=== PATIENT | male | born 1970 | race African-American/Black ===

== ENCOUNTER 2016-06-30 11:28 | Inpatient (IN) | payer OTHER ==
[2016-06-30] VITALS (17 sets, daily range): BP systolic 110–181; BP diastolic 69–115
[~2016-06-30] VITALS: Ht 177.8 cm; Wt 98.9 kg
[~2016-06-30 11:28] MED LIST: AMLO10TA2 PO; CRESTOR40 MG PO; HYDR25TA9 PO; POTASSIUM CHLO10 MEQ PO; SPIR25TA PO
[2016-06-30] MEDS ORDERED: IV NORMAL SALINE 1000ML BAG 1,000 ML IV SCH (12:26)
[2016-06-30] MEDS ORDERED: LABETALOL 20 MG/4 ML DISP.SYRIN. IVP ONE (12:30)
--- NOTE | 2016-06-30 12:38 | EKG ---
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
--- NOTE | 2016-06-30 12:43 | RAD ---
Indication shortness of breath. Dizziness. A single view of the chest was obtained. Comparison is made to a study February 10, 2013. The heart and pulmonary vessels are normal. The lungs are clear of acute infiltrates. Visualized bony structures appear grossly intact. IMPRESSION: No acute or focal process seen in the chest
[2016-06-30 12:51] LABS: CALCIUM 9.3 mg/dL (8.5-10.1); CREATININE 1.2 mg/dL (0.7-1.3); GFR 79.6; POTASSIUM 3.3 mmol/L (3.5-5.1)
--- NOTE | 2016-06-30 12:53 | RAD ---
Indication headache. Hypertension. Noncontrast images of the head were obtained and are compared to an exam 02/15/2007. The calvarium appears unremarkable. There is partial opacification of ethmoid air cells. There is some minimal debris or mucosal thickening in the left frontal sinus. Clinical correlation as to the possibility of sinusitis advised. The ventricles and sulci are within normal limits. There is no subdural or epidural hematoma. No mass or midline shift is seen. No hemorrhage is apparent. Acute intracranial finding is not seen. IMPRESSION: No acute or significant finding intracranially seen on noncontrast CT images of the head. Possible sinus disease. Clinical correlation advised PQRS Compliance Statement: One or more of the following individualized dose reduction techniques were utilized for this examination: 1. Automated exposure control 2. Adjustment of the mA and/or kV according to patient size 3. Use of iterative reconstruction technique
[2016-06-30 12:56] LABS: ALBUMIN/GLOBULIN RATIO 0.9 (1.0-1.7); MAGNESIUM 2.2 mg/dL (1.8-2.4); TOTAL BILIRUBIN 0.8 mg/dL (0.2-1.0); TOTAL PROTEIN 8.4 g/dL (6.4-8.2)
[2016-06-30 13:07] LABS: BASO % 1 % (0-3); EOS % 3 % (0-3); HEMATOCRIT 44.6 % (39.0-53.0); HEMOGLOBIN 14.6 g/dL (13.0-17.5); LYMPH # 2.5 x10^3/uL (1.0-4.8); LYMPH % 45 % (24-48); MEAN CORPUSCULAR HEMOGLOBIN 32 pg (25-35); MEAN CORPUSCULAR HGB CONC 33 g/dL (31-37); MEAN CORPUSCULAR VOLUME 96 fL (79-100); MONO % 8 % (0-9); NEUT % 44 % (31-73); PLATELET COUNT 227 x10^3/uL (140-400); RED BLOOD COUNT 4.64 x10^6/uL (4.30-5.70); RED CELL DISTRIBUTION WIDTH 12.7 % (11.5-14.5); WHITE BLOOD COUNT 5.7 x10^3/uL (4.0-11.0)
--- NOTE | 2016-06-30 13:09 | PHYS DOC ---
Past Medical History Past Medical History: High Cholesterol, Hypertension Additional Past Medical Histor: GOUT Past Surgical History: No Surgical History Additional Information: 1/2 PACK/DAY Alcohol Use: Occasionally Additional Information: 3 BEERS/DAY Drug Use: None Adult General Chief Complaint Chief Complaint: DIZZY/LIGHT HEADED HPI HPI Patient is a 45 year old male who presents with complaint of dizziness, headache, and high blood pressure. Patient states his symptoms have been present for the past 2-3 days. Patient states that he has history of hypertension but does not know the name of his medication and admits that he has not been taking it daily. The patient states that he has been having dizziness upon standing and persistent headaches. Patient denies any chest pain or shortness of breath associated with his symptoms. Patient does admit to generalized weakness and decreased appetite during this time. Denies any fevers. Patient has not taken any medications to help with his symptoms. Patient was noted to be significantly hypertensive upon presentation to the emergency department. Patient follows a Dr. jackson robertson for primary care. Review of Systems Review of Systems Constitutional: Denies fever or chills [] Eyes: Denies change in visual acuity, redness, or eye pain [] HENT: Denies nasal congestion or sore throat [] Respiratory: Denies cough or shortness of breath [] Cardiovascular: Denies chest pain or edema [] GI: Loss of appetite, denies abdominal pain, nausea, vomiting, bloody stools or diarrhea [] : Denies dysuria or hematuria [] Musculoskeletal: Denies back pain or joint pain [] Integument: Denies rash or skin lesions [] Neurologic: Headache, dizziness, denies [] Current Medications Current Medications Current Medications Medications (Trade) Dose Ordered Sig/Mik Start Time Stop Time Status Last Admin Dose Admin Labetalol HCl (Normodyne) 20 mg 1X ONCE 06/30/16 12:30 06/30/16 12:31 DC 06/30/16 12:52 20 MG Nicardipine HCl 50 mg/Sodium Chloride 270 ml @ 0 mls/hr CONT PRN 06/30/16 13:45 Sodium Chloride 1,000 ml @ 100 mls/hr Q10H 06/30/16 12:26 06/30/16 22:25 06/30/16 12:52 100 MLS/HR Allergies Allergies Allergies Coded Allergies Type Severity Reaction Last Updated Verified No Known Drug Allergies 10/16/13 No Physical Exam Physical Exam Constitutional: Alert, hypertensive, afebrile, no acute distress. [] HENT: Normocephalic, atraumatic, bilateral external ears normal, oropharynx moist, no oral exudates, nose normal. [] Eyes: PERRLA, EOMI, conjunctiva normal, no discharge. [] Neck: Normal range of motion, no tenderness, supple, no stridor. [] Cardiovascular:Heart rate regular rhythm, no murmur [] Lungs & Thorax: Bilateral breath sounds clear to auscultation [] Abdomen: Bowel sounds normal, soft, no tenderness, no masses, no pulsatile masses. [] Skin: Warm, dry, no erythema, no rash. [] Back: No tenderness, no CVA tenderness. [] Extremities: No tenderness, no cyanosis, no clubbing, ROM intact, no edema. [] Neurologic: Alert and oriented X 3, normal motor function, normal sensory function, no focal deficits noted. [] Current Patient Data Vital Signs Vital Signs Date Time Temp Pulse Resp B/P (MAP) Pulse Ox O2 Delivery O2 Flow Rate FiO2 06/30/16 12:52 76 177/110 06/30/16 11:42 98.5 18 95 Room Air 98.5 Lab Values Laboratory Tests Test 06/30/16 11:40 06/30/16 13:19 White Blood Count 5.7 x10^3/uL (4.0-11.0) Red Blood Count 4.64 x10^6/uL (4.30-5.70) Hemoglobin 14.6 g/dL (13.0-17.5) Hematocrit 44.6 % (39.0-53.0) Mean Corpuscular Volume 96 fL (79-100) Mean Corpuscular Hemoglobin 32 pg (25-35) Mean Corpuscular Hemoglobin Concent 33 g/dL (31-37) Red Cell Distribution Width 12.7 % (11.5-14.5) Platelet Count 227 x10^3/uL (140-400) Neutrophils (%) (Auto) 44 % (31-73) Lymphocytes (%) (Auto) 45 % (24-48) Monocytes (%) (Auto) 8 % (0-9) Eosinophils (%) (Auto) 3 % (0-3) Basophils (%) (Auto) 1 % (0-3) Neutrophils # (Auto) 2.5 x10^3uL (1.8-7.7) Lymphocytes # (Auto) 2.5 x10^3/uL (1.0-4.8) Monocytes # (Auto) 0.4 x10^3/uL (0.0-1.1) Eosinophils # (Auto) 0.2 x10^3/uL (0.0-0.7) Basophils # (Auto) 0.0 x10^3/uL (0.0-0.2) Prothrombin Time 13.4 SEC (11.7-14.0) Prothrombin Time INR 1.1 (0.8-1.1) PTT 28 SEC (24-38) Sodium Level 139 mmol/L (136-145) Potassium Level 3.3 mmol/L (3.5-5.1) L Chloride Level 99 mmol/L (98-107) Carbon Dioxide Level 30 mmol/L (21-32) Anion Gap 10 (6-14) Blood Urea Nitrogen 15 mg/dL (8-26) Creatinine 1.2 mg/dL (0.7-1.3) Estimated GFR (Cockcroft-Gault) 79.6 BUN/Creatinine Ratio 13 (6-20) Glucose Level 79 mg/dL (70-99) Calcium Level 9.3 mg/dL (8.5-10.1) Magnesium Level 2.2 mg/dL (1.8-2.4) Total Bilirubin 0.8 mg/dL (0.2-1.0) Aspartate Amino Transferase (AST) 21 U/L (15-37) Alanine Aminotransferase (ALT) 25 U/L (16-63) Alkaline Phosphatase 58 U/L (46-116) Troponin I Quantitative < 0.017 ng/mL (0.000-0.055) Total Protein 8.4 g/dL (6.4-8.2) H Albumin 4.0 g/dL (3.4-5.0) Albumin/Globulin Ratio 0.9 (1.0-1.7) L Lipase 85 U/L (73-393) Urine Color Yellow Urine Clarity Clear Urine pH 5.5 Urine Specific [place] 1.025 Urine Protein Negative mg/dL (NEG-TRACE) Urine Glucose (UA) Negative mg/dL (NEG) Urine Ketones (Stick) 15 mg/dL (NEG) Urine Blood Negative (NEG) Urine Nitrite Negative (NEG) Urine Bilirubin Small (NEG) Urine Urobilinogen Dipstick 1.0 mg/dL (0.2 mg/dL) Urine Leukocyte Esterase Negative (NEG) Urine RBC Occ /HPF (0-2) Urine WBC 1-4 /HPF (0-4) Urine Squamous Epithelial Cells Occ /LPF Urine Bacteria 0 /HPF (0-FEW) Urine Hyaline Casts Occasional /HPF Urine Mucus Mod /LPF Laboratory Tests 06/30/16 11:40 Laboratory Tests 06/30/16 11:40 EKG EKG Interpreted by me: Heart rate 80, sinus rhythm, normal intervals, T-wave inversions in the inferior leads and in V3 through V6, no acute ST elevations or depressions [] Radiology/Procedures Radiology/Procedures [place] [id number] IMAGING REPORT Signed PATIENT: JAMES BERNAL ACCOUNT: [id number] : 1970 LOCATION: ER AGE: 45 SEX: M EXAM STATUS: REG ER ORD. PHYSICIAN: ARTUR LOPEZ MD REASON: shortness of breath PROCEDURE: PORTABLE CHEST 1V Indication shortness of breath. Dizziness. A single view of the chest was obtained. Comparison is made to a study February 10, 2013. The heart and pulmonary vessels are normal. The lungs are clear of acute infiltrates. Visualized bony structures appear grossly intact. IMPRESSION: No acute or focal process seen in the chest DICTATED and SIGNED BY: IRENE MEAD MD DATE: 06/30/16 1240 CC: ARTUR LOPEZ MD; LORIE GOLDEN MD ~ [place] [address] [place] [address] IMAGING REPORT Signed PATIENT: JAMES BERNAL ACCOUNT: [id number] : 1970 LOCATION: ER AGE: 45 SEX: M EXAM STATUS: REG ER ORD. PHYSICIAN: ARTUR LOPEZ MD REASON: headache, critical hypertension PROCEDURE: CT HEAD WO CONTRAST Indication headache. Hypertension. Noncontrast images of the head were obtained and are compared to an exam 02/15/2007. The calvarium appears unremarkable. There is partial opacification of ethmoid air cells. There is some minimal debris or mucosal thickening in the left frontal sinus. Clinical correlation as to the possibility of sinusitis advised. The ventricles and sulci are within normal limits. There is no subdural or epidural hematoma. No mass or midline shift is seen. No hemorrhage is apparent. Acute intracranial finding is not seen. IMPRESSION: No acute or significant finding intracranially seen on noncontrast CT images of the head. Possible sinus disease. Clinical correlation advised PQRS Compliance Statement: One or more of the following individualized dose reduction techniques were utilized for this examination: 1. Automated exposure control 2. Adjustment of the mA and/or kV according to patient size 3. Use of iterative reconstruction technique DICTATED and SIGNED BY: IRENE MEAD MD DATE: 06/30/16 3535 CC: ARTUR LOPEZ MD; LORIE GOLDEN MD ~ [] Course & Med Decision Making Course & Med Decision Making Pertinent Labs and Imaging studies reviewed. (See chart for details) Patient was treated with IV labetalol in the emergency department. Patient did not achieve control of blood pressure and continued to have symptoms of headache and dizziness. The patient was thus started on nicardipine drip for control of blood pressure. On reevaluation, the patient's blood pressures steadily improving. The patient will require admission to the hospital for continued treatment of malignant hypertension. I spoke with Dr. Golden who accepted care patient in hospital. A consult was placed to Dr. Walters of cardiology to follow with patient in hospital. Critical care time excluding procedures: 40 minutes Dragon Disclaimer Dragon Disclaimer This electronic medical record was generated, in whole or in part, using a voice recognition dictation system. Departure Departure Impression: Primary Impression: Malignant hypertension Disposition: ADMITTED INPATIENT Admitting Physician: Lorie Golden Condition: GUARDED Referrals: LORIE GOLDEN MD (PCP) ARTUR LOPEZ MD June 30, 2016 13:09
[2016-06-30 13:21] LABS: INR 1.1 (0.8-1.1); PROTHROMBIN TIME PATIENT 13.4 SEC (11.7-14.0)
[2016-06-30 13:35] LABS: BILIRUBIN,URINE SMALL (NEG); GLUCOSE,URINE NEGATIVE (NEG); NITRITE,URINE NEGATIVE (NEG); PH,URINE 5.5; PROTEIN,URINE NEGATIVE (NEG-TRACE)
[2016-06-30 13:59] LABS: BACTERIA,URINE 0 /HPF (0-FEW); RBC,URINE OCC /HPF (0-2); SQUAMOUS EPITHELIAL CELL,UR OCC /LPF
--- NOTE | 2016-06-30 14:56 | ACF ---
Admission Forms Criteria HYPERTENSION Clinical Indications for Admission to Inpatient Care ( Place "X" for any and all applicable criteria): Admission is indicated for ANY ONE of the following(1)(2)(3)(4): [ ]I. Hypertensive emergency, with evidence of acute and progressing target organ disease as indicated by ANY ONE of the following: [ ]a) Hypertensive encephalopathy (eg, confusion, altered mental status) [ ]b) Cerebral infarction [ ]c) Intracranial hemorrhage [ ]d) Myocardial ischemia or infarction [ ]e) Pulmonary edema [ ]f) Aortic dissection [ ]g) Seizure [ ]h) Acute renal insufficiency [ ]i) Papilledema [ ]j) Microangiopathic hemolytic anemia [ ]II. Adrenergic crisis (eg, severe hypertension due to pheochromocytoma crisis, cocaine or amphetamine intoxication, or clonidine withdrawal) [X]III. Severe hypertension (SBP greater than 180 mmHg or DBP greater than 110 mmHg or greater than the 95th percentile for age, gender, and height in pediatric patients) that cannot be controlled (eg, to SBP less than 160 mmHg and DBP less than 100 mmHg in adults) by treatment with oral medication in emergency department or observation care Extended stay beyond goal length of stay may be needed for(11)(12)(13): [ ]a) Persistent hypertensive encephalopathy [ ]b) Continuation of pulmonary edema [ ]c) Recurring or persistent severe hypertension [ ]d) Target organ damage (eg, angina, stroke, aortic dissection) [ ]e) Associated renal insufficiency The original [facility] content created by [employer] has been revised. The portions of the content which have been revised are identified through the use of italic text or in bold, and [facility] has neither reviewed nor approved the modified material. All other unmodified content is copyright [facility] [employer]. Please see references footnoted in the original [facility] edition 2016 Admission Criteria Met?: Yes DEE NASCIMENTO June 30, 2016 14:56
[2016-06-30] MEDS ORDERED: POTASSIUM CHLORIDE 20 MEQ TABLET.ER. PO ONE (15:15)
[2016-06-30] MEDS: amLODIPine BESYLATE 10 MG TABLET PO SCH (15:42)
[2016-06-30] MEDS: hydroCHLOROthiazide 25 MG TABLET PO SCH (15:42)
[2016-06-30] MEDS: SPIRONOLACTONE 25 MG TABLET PO SCH (15:43)
[2016-06-30] MEDS: ATORVASTATIN CALCIUM 40 MG TABLET. PO SCH (21:08)
[2016-07-01] VITALS (13 sets, daily range): BP systolic 82–161; BP diastolic 54–112
[2016-07-01 04:30] LABS: CREATININE 1.2 mg/dL (0.7-1.3); GFR 79.6
[2016-07-01] MEDS: SPIRONOLACTONE 25 MG TABLET PO SCH (08:24)
[2016-07-01] MEDS: POTASSIUM CHLORIDE 10 MEQ TABLET.ER. PO SCH (08:25)
[2016-07-01] MEDS: amLODIPine BESYLATE 10 MG TABLET PO SCH (08:25)
[2016-07-01] MEDS: hydroCHLOROthiazide 25 MG TABLET PO SCH (08:25)
[2016-07-01] MEDS ORDERED: POTASSIUM CHLORIDE 20 MEQ TABLET.ER. PO ONE ×2 (08:30→10:30)
--- NOTE | 2016-07-01 09:49 | PDOC ---
Provider Note Provider Note Pt seen in icu, H&P to be dictated. NOY GOLDEN MD July 01, 2016 09:49
--- NOTE | 2016-07-01 17:44 | CARD ---
APPROVED REPORT EXAM: Two-dimensional and M-mode echocardiogram with Doppler and color Doppler. Other Information Quality : Good INDICATION Hypertension/HCVD Heart Disease 2D DIMENSIONS RVDd2.4 (2.9-3.5cm)Left Atrium(2D)4.2 (1.6-4.0cm) IVSd1.0 (0.7-1.1cm)Aortic Root(2D)3.2 (2.0-3.7cm) LVDd5.3 (3.9-5.9cm)LVOT Diameter2.2 (1.8-2.4cm) PWd1.5 (0.7-1.1cm)LVDs2.8 (2.5-4.0cm) FS (%) 30.0 %SV105.9 ml LVEF(%)60.0 (>50%) Aortic Valve AoV Peak Gray.125.0cm/sAoV VTI17.4cm AO Peak GR.6.3mmHgLVOT VTI 16.79cm AO Mean GR.3mmHgAVA (VTI)3.70cm2 Mitral Valve MV E Dlbsctwt86.6cm/sMV DECEL IAKP199pj MV A Gsjxkktz46.0cm/sE/A Ratio0.6 TDI Lateral E' P. V7.21cm/sMedial E' P. V4.76cm/s E/Lateral E'6.9E/Medial E'10.4 Tricuspid Valve TR P. Unjlemsm982rb/sRAP ILCGVQJA1ebCm TR Peak Gr.63vqMhADVN61jvNq Pulmonary Vein S1 Iqsjprym25.2cm/sS2 Btmelknr01.46cm/s D2 Sbqqokqb52.5cm/s LEFT VENTRICLE The left ventricle is normal size. There is mild to moderate concentric left ventricular hypertrophy. The left ventricular systolic function is normal and the ejection fraction is within normal range. T he Ejection Fraction is 60%. There is normal LV segmental wall motion. Transmitral Doppler flow patte rn is Grade I-abnormal relaxation pattern. RIGHT VENTRICLE The right ventricle is normal size. The right ventricular systolic function is normal. ATRIA The left atrium is mildly dilated. The right atrium size is normal. The interatrial septum is intact with no evidence for an atrial septal defect or patent foramen ovale as noted on 2-D or Doppler imagi ng. AORTIC VALVE The aortic valve is normal in structure and function. Doppler and Color Flow revealed no significant aortic regurgitation. There is no significant aortic valvular stenosis. MITRAL VALVE The mitral valve is normal in structure and function. There is no evidence of mitral valve prolapse. There is no mitral valve stenosis. Doppler and Color-flow revealed trace mitral regurgitation. TRICUSPID VALVE The tricuspid valve is normal in structure and function. Doppler and Color Flow revealed trace tricus pid regurgitation. There is no pulmonary hypertension. The PA pressure was estimated at 28 mmHg. Ther e is no tricuspid valve stenosis. PULMONIC VALVE The pulmonary valve is normal in structure and function. Doppler and Color Flow revealed no pulmonic valvular regurgitation. There is no pulmonic valvular stenosis. GREAT VESSELS The aortic root is normal in size. The ascending aorta is mildly dilated at 3.6 cm. The IVC is normal in size and collapses >50% with inspiration. PERICARDIAL EFFUSION There is no evidence of significant pericardial effusion. Critical Notification Critical Value: No <Conclusion> The left ventricular systolic function is normal and the ejection fraction is within normal range. The Ejection Fraction is 60%. Transmitral Doppler flow pattern is Grade I-abnormal relaxation pattern. There is mild to moderate concentric left ventricular hypertrophy. The left atrium is mildly dilated. The right atrium size is normal. The aortic valve is normal in structure and function. Doppler and Color-flow revealed trace mitral regurgitation. Doppler and Color Flow revealed trace tricuspid regurgitation. There is no pulmonary hypertension. The PA pressure was estimated at 28 mmHg. The pulmonary valve is normal in structure and function. There is no evidence of significant pericardial effusion.
[2016-07-01] MEDS: ATORVASTATIN CALCIUM 40 MG TABLET. PO SCH (22:23)
[2016-07-02 03:39] VITALS: BP 144/95
[2016-07-02 04:48] LABS: CALCIUM 9.4 mg/dL (8.5-10.1); CREATININE 1.3 mg/dL (0.7-1.3); GFR 72.6; POTASSIUM 3.7 mmol/L (3.5-5.1)
--- NOTE | 2016-07-02 06:18 | HP ---
ADMIT DATE: 06/30/2016 LOCATION: ICU, room 110. REASON FOR ADMISSION TO THE HOSPITAL: Malignant hypertension, noncompliant with hypertensive medications. HISTORY OF PRESENT ILLNESS: The patient is a 45-year-old male with a history of hypertension, hyperlipidemia, gout, has been supposed to take medications, but he has been noncompliant. His blood pressure was high, feeling headache, lightheaded, came to the Emergency Room. His blood pressure has been high, 220/110, was given Cardene drip, was admitted to the ICU. PAST MEDICAL HISTORY: Hypertension, hyperlipidemia, gout, noncompliance. PAST SURGICAL HISTORY: None. ALLERGIES: None. PERSONAL HISTORY: Smokes half a pack daily. Alcohol, 3 [address] Den[address] drugs. FAMILY HISTORY: Positive for hypertension. REVIEW OF SYMPTOMS: CARDIAC: No chest pain. LUNGS: No shortness of breath. GASTROINTESTINAL: No nausea or vomiting, just lightheaded, dizziness. MEDICATIONS AT HOME: Amlodipine 10 mg daily, hydrochlorothiazide 25 mg daily, potassium 10 mEq daily, Crestor 40 mg daily, spironolactone 25 mg daily. PHYSICAL EXAMINATION: GENERAL: The patient is comfortable. 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 At the time of admission, shows temperature 98, pulse 80, respirations 18, blood pressure 220/131, 95 on room air. HEENT: Head is atraumatic. Pupils equal. Oral cavity: No congestion. NECK: Supple. Thyroid not enlarged. JVD not elevated. CHEST: Symmetrical. CARDIOVASCULAR: S1, S2. LUNGS: Clear to auscultation. ABDOMEN: Soft, bowel sounds present, no mass palpable. EXTERNAL GENITALIA: No Hernandez. RECTAL: Deferred. EXTREMITIES: No calf tenderness, no edema. Pulses 1+. NEUROLOGIC: Cranial nerves intact. Power 5/5 in the extremities. LABORATORY DATA: Shows a white count of 5, hemoglobin 14, platelets 227. Electrolytes show sodium 149, potassium 3.3, chloride 99, bicarb 30, BUN 15, creatinine 1.2. LFTs were normal. Troponin was negative. INR is 1.1. Urine was negative. Had a chest x-ray, was no acute process. CT head was negative, possible sinus disease. EKG done, report is pending. FINAL IMPRESSION: 1. Malignant hypertension. 2. Noncompliance. 3. History of smoking and alcoholism. PLAN: At this time, admit to hospital . The patient was placed on cardene drip, was titrated down, weaned off this morning. We will get an echocardiogram for left ventricular function, replace potassium and can move out of the ICU today. Probably discharge home in the next 1-2 days. NOY GOLDEN MD DR: KINA/bony JOB#: [id number] / [id number] SANTINO
[2016-07-02 07:00] VITALS: BP 157/114
[2016-07-02] MEDS: POTASSIUM CHLORIDE 10 MEQ TABLET.ER. PO SCH (08:00)
--- NOTE | 2016-07-02 10:19 | PDOC ---
PROGRESS NOTES Subjective Subjective bp not controlled ,going up again Objective Objective Vital Signs Date Time Temp Pulse Resp B/P (MAP) Pulse Ox O2 Delivery O2 Flow Rate FiO2 07/02/16 07:00 98.0 76 157/114 (128) 98 Room Air 98.0 07/02/16 03:39 18 Intake and Output 07/02/16 07:00 Intake Total 1420 ml Balance 1420 ml Intake Oral 1420 ml # Voids 7 # Bowel Movements 1 Physical Exam Abdomen: Normal bowel sounds, Soft Heart: Regular rate, Normal S1 Extremities: No clubbing General: Alert HEENT: Atraumatic Lungs: Clear to auscultation MUSCULOSKELETAL: No deformity Neck: Supple Neuro: Normal speech Psych/Mental Status: Mental status NL Skin: No breakdown Assessment Assessment FINAL IMPRESSION: 1. Malignant hypertension. 2. Noncompliance. 3. History of smoking and alcoholism. PLAN: ECHO good LVF. potassium good 4.0 today ,replaced. renal consult sono kidneys and duplex scan kidneys. home today or tomorrow. At this time, admit to hospital ICU. The patient was placed on Nipride drip, was titrated down, weaned off this morning. We will get an echocardiogram for left ventricular function, replace potassium and can move out of the ICU today. Probably discharge home in the next 1-2 days. Problems: Comment Review of Relevant I have reviewed the following items mireille (where applicable) has been applied. Labs Laboratory Tests Test 07/02/16 03:09 Sodium Level 142 mmol/L (136-145) Potassium Level 3.7 mmol/L (3.5-5.1) Chloride Level 102 mmol/L (98-107) Carbon Dioxide Level 33 mmol/L (21-32) Anion Gap 7 (6-14) Blood Urea Nitrogen 16 mg/dL (8-26) Creatinine 1.3 mg/dL (0.7-1.3) Estimated GFR (Cockcroft-Gault) 72.6 Glucose Level 98 mg/dL (70-99) Calcium Level 9.4 mg/dL (8.5-10.1) Medications Current Medications Potassium Chloride (Klor-Con) 40 meq 1X ONCE PO Last administered on t 11:16; Start 07/01/16 at 10:30; Stop 07/01/16 at 10:31; Status DC Vitals/I & O Vital Sign - Last 24 Hours 07/01/16 07/01/16 07/01/16 07/01/16 14:47 19:00 20:00 23:00 Temp 98.1 97.9 97.7 98.1 97.9 97.7 Pulse 73 93 75 Resp 20 18 18 B/P (MAP) 151/102 (118) 146/112 (123) 141/93 (109) Pulse Ox 98 100 96 O2 Delivery Room Air Room Air Room Air Room Air 07/02/16 07/02/16 03:39 07:00 Temp 97.5 98.0 97.5 98.0 Pulse 73 76 Resp 18 B/P (MAP) 144/95 (111) 157/114 (128) Pulse Ox 97 98 O2 Delivery Room Air Room Air Intake and Output 07/01/16 07/01/16 07/02/16 15:00 23:00 07:00 Intake Total 240 ml 780 ml 400 ml Balance 240 ml 780 ml 400 ml NOY GOLDEN MD July 02, 2016 10:19
[2016-07-02 11:00] VITALS: BP 162/113
--- NOTE | 2016-07-02 13:50 | RAD ---
Renal ultrasound with deep Doppler, 07/02/2016: History: Uncontrolled hypertension The right kidney measures 11.9 cm in length as does the left kidney. There is no evidence of hydronephrosis. There is a 3.5 cm mass in the right mid to lower kidney. It appears to be predominantly cystic with septations. There is a small echogenic component which could be solid. No left renal mass is seen. The renal parenchymal echogenicity is otherwise within normal limits. Limited views of urinary bladder show no abnormality. Duplex evaluation of the main renal arteries was attempted including grayscale, color-flow and spectral Doppler analysis. No high velocity is seen in the right main renal artery to suggest significant stenosis. The origin of left renal artery from the aorta was obscured by overlying bowel. The mid and distal aspects of the main left renal artery demonstrate no high velocities. The renal artery to aortic velocity ratios are within normal limits bilaterally. No parvus/tardus phenomena is seen on either side. IMPRESSION: 1. No duplex evidence of significant renal artery stenosis, although the origin of the left renal artery was not clearly visualized. 2. Complicated, predominantly cystic mass in the right kidney. Multiphase CT scanning is suggested for optimal characterization.
[2016-07-02 15:00] VITALS: BP 169/114
[2016-07-02 19:00] VITALS: BP 150/109
[2016-07-02] MEDS ORDERED: hydrALAZINE 20 MG/ML VIAL. IVP PRN (19:45)
[2016-07-02] MEDS: amLODIPine BESYLATE 10 MG TABLET PO SCH (20:14)
[2016-07-02] MEDS: hydroCHLOROthiazide 25 MG TABLET PO SCH (20:15)
[2016-07-02] MEDS: SPIRONOLACTONE 25 MG TABLET PO SCH (20:15)
[2016-07-02] MEDS: ATORVASTATIN CALCIUM 40 MG TABLET. PO SCH (20:51)
[2016-07-02 23:00] VITALS: BP 150/102
[2016-07-03 03:00] VITALS: BP 150/118
[2016-07-03] MEDS ORDERED: hydrALAZINE 20 MG/ML VIAL. IVP PRN (04:00)
[2016-07-03] MEDS ORDERED: CONTRAST GIVEN MC PRN ×2 (06:45→09:00)
[2016-07-03] MEDS ORDERED: IOHEXOL 300 MG/ML 75 ML VIAL IV ONE ×2 (07:00→09:00)
[2016-07-03 07:22] VITALS: BP 143/92
--- NOTE | 2016-07-03 08:36 | PDOC ---
PROGRESS NOTES Subjective Subjective Pt. with complex right renal cyst on sono Objective Objective Vital Signs Date Time Temp Pulse Resp B/P (MAP) Pulse Ox O2 Delivery O2 Flow Rate FiO2 07/03/16 04:13 96 150/118 07/03/16 03:00 98.9 19 98 Room Air 98.9 Intake and Output 07/03/16 07:00 Intake Total 1490 ml Balance 1490 ml Intake Oral 1490 ml # Voids 9 Physical Exam Physical Exam [id number] Plan Plan of Care CT kidneys-renal mass protocol to further examine right complex renal cyst Comment Review of Relevant I have reviewed the following items mireille (where applicable) has been applied. Labs Laboratory Tests Test 07/02/16 03:09 Sodium Level 142 mmol/L (136-145) Potassium Level 3.7 mmol/L (3.5-5.1) Chloride Level 102 mmol/L (98-107) Carbon Dioxide Level 33 mmol/L (21-32) Anion Gap 7 (6-14) Blood Urea Nitrogen 16 mg/dL (8-26) Creatinine 1.3 mg/dL (0.7-1.3) Estimated GFR (Cockcroft-Gault) 72.6 Glucose Level 98 mg/dL (70-99) Calcium Level 9.4 mg/dL (8.5-10.1) Medications Current Medications Sodium Chloride 1,000 ml @ 100 mls/hr Q10H IV Last administered on 06/30/16 12:52; Start 06/30/16 at 12:26; Stop 06/30/16 at 22:25; Status DC Labetalol HCl (Normodyne) 20 mg 1X ONCE IVP Last administered on 06/30/16 12: 52; Start 06/30/16 at 12:30; Stop 06/30/16 at 12:31; Status DC Nicardipine HCl 50 mg/Sodium Chloride 270 ml @ 0 mls/hr CONT PRN IV SEE I/O RECORD Last administered on 06/30/16 13:45; Start 06/30/16 at 13:45; Stop 07/02 at 12:18; Status DC Amlodipine Besylate (Norvasc) 10 mg DAILY PO Last administered on 07/02/16 20: 14; Start 06/30/16 at 15:00 Hydrochlorothiazide (Hydrodiuril) 25 mg DAILY PO Last administered on 20:15; Start 06/30/16 at 15:00 Spironolactone (Aldactone) 25 mg DAILY PO Last administered on 07/02/16 20:15 ; Start 06/30/16 at 15:00 Potassium Chloride (Klor-Con) 10 meq DAILYWBKFT PO Last administered on 08:00; Start 07/01/16 at 08:00 Atorvastatin Calcium (Lipitor) 80 mg QHS PO Last administered on 07/02/16 20: 51; Start 06/30/16 at 21:00 Potassium Chloride (Klor-Con) 40 meq 1X ONCE PO Last administered on 15:43; Start 06/30/16 at 15:15; Stop 06/30/16 at 15:16; Status DC Potassium Chloride (Klor-Con) 40 meq 1X ONCE PO Last administered on 08:30; Start 07/01/16 at 08:30; Stop 07/01/16 at 08:31; Status DC Potassium Chloride (Klor-Con) 40 meq 1X ONCE PO Last administered on 11:16; Start 07/01/16 at 10:30; Stop 07/01/16 at 10:31; Status DC Hydralazine HCl (Apresoline) 10 mg PRN Q4HRS PRN IVP ELEVATED BP, SEE COMMENTS Last administered on 07/02/16 20:21; Start 07/02/16 at 19:45; Stop 07/02/16 at 20:48; Status DC Hydralazine HCl (Apresoline) 20 mg PRN Q6HRS PRN IVP ELEVATED BP, SEE COMMENTS Last administered on 07/03/16 04:13; Start 07/03/16 at 04:00 Iohexol (Omnipaque 300 Mg/ml) 75 ml 1X ONCE IV ; Start 07/03/16 at 07:00; Stop 07/03/16 at 07:01; Status DC Info (Do NOT chart on this entry -- for MONITORING) 1 each PRN DAILY PRN MC SEE COMMENTS; Start 07/03/16 at 06:45; Stop 07/05/16 at 06:44 Active Scripts Active Reported Aldactone (Spironolactone) 25 Mg Tablet 1 Tab PO DAILY Potassium Chloride 10 Meq Capsule.er 1 Cap PO DAILY Crestor (Rosuvastatin Calcium) 40 Mg Tablet 1 Tab PO DAILY Amlodipine Besylate 10 Mg Tablet 1 Tab PO DAILY Hydrochlorothiazide Tablet (Hydrochlorothiazide) 25 Mg Tablet 25 Mg PO DAILY Vitals/I & O Vital Sign - Last 24 Hours 07/02/16 07/02/16 07/02/16 07/02/16 11:00 15:00 19:00 20:00 Temp 98.1 98.1 98.4 98.1 98.1 98.4 Pulse 79 80 81 Resp 18 18 18 B/P (MAP) 162/113 (129) 169/114 (132) 150/109 (123) Pulse Ox 98 97 97 O2 Delivery Room Air Room Air Room Air Room Air 07/02/16 07/02/16 07/02/16 07/03/16 20:14 20:21 23:00 03:00 Temp 98.4 98.9 98.4 98.9 Pulse 80 80 89 98 Resp 18 19 B/P (MAP) 169/114 169/114 150/102 (118) 150/118 (129) Pulse Ox 97 98 O2 Delivery Room Air Room Air 07/03/16 04:13 Pulse 96 B/P (MAP) 150/118 Intake and Output 07/02/16 07/02/16 07/03/16 15:00 23:00 07:00 Intake Total 450 ml 800 ml 240 ml Balance 450 ml 800 ml 240 ml BRIANNA DICKENS MD July 03, 2016 08:36
[2016-07-03] MEDS: POTASSIUM CHLORIDE 10 MEQ TABLET.ER. PO SCH (09:08)
[2016-07-03] MEDS: SPIRONOLACTONE 25 MG TABLET PO SCH (09:08)
[2016-07-03] MEDS: hydroCHLOROthiazide 25 MG TABLET PO SCH (09:08)
[2016-07-03] MEDS: amLODIPine BESYLATE 10 MG TABLET PO SCH (09:08)
--- NOTE | 2016-07-03 10:16 | RAD ---
Indication renal mass. Multiphase imaging through the abdomen was performed. The pelvis was not studied. Initially noncontrast images through the kidneys were obtained. This was followed by portal venous phase images and finally delayed images. Approximately 75 cc of Omnipaque 300 was administered. Note is made of the renal ultrasound examination yesterday referencing a mass in the right kidney. On the initial noncontrast images note is made of a 4 cm right renal mass. No renal calculi are seen. On the portal venous phase images the mass is unchanged in appearance and does not demonstrate substantial enhancement. The delayed images similarly show no significant enhancement and the findings are compatible with a cyst. The left kidney appears unremarkable. Visualized portions of the ureters appear normal. The liver and spleen appear unremarkable. The gallbladder appears grossly normal. The adrenal glands appear normal. No pancreatic abnormality is seen. An acute finding in the abdomen is not seen. The lung bases are clear. IMPRESSION: No acute finding in the abdomen. 4 cm right renal cyst PQRS Compliance Statement: One or more of the following individualized dose reduction techniques were utilized for this examination: 1. Automated exposure control 2. Adjustment of the mA and/or kV according to patient size 3. Use of iterative reconstruction technique
[2016-07-03 10:30] VITALS: BP 192/121
--- NOTE | 2016-07-03 11:56 | PDOC2 ---
CONSULT Date of Consult Date of Consult DATE: 07/03/16 TIME: 11:51 Reason for Consult Reason for Consult: MALIGNANT HTN Referring Physician Referring Physician: CHANTEL Identification/Chief Complaint Chief Complaint NEGRETE AND LIGHT HEADED Source Source: Chart review, Patient History of Present Illness Reason for Visit: THIS IS A 45 YR OLD ADMITTED WITH NEGRETE AND LIGHT HEADED. BP WAS 220/110. HE HAS HAD A HX OF HTN BUT NOT BEEN TAKING HIS MEDS. HE IS NOTED TO HAVE A LOW K. SINCE ADMIT HE HAS HAD IV ANTIHYPERTENSIVES AND HIS ORAL MEDS HAVE BEEN RESUMED Past Medical History Cardiovascular: HTN, Hyperlipidemia Musculoskeletal: Other (GOUT) Family History Family History: Hypertension Social History No ALCOHOL: none Drugs: None Lives: with Family Current Medications Current Medications Current Medications Sodium Chloride 1,000 ml @ 100 mls/hr Q10H IV Last administered on 06/30/16 12:52; Start 06/30/16 at 12:26; Stop 06/30/16 at 22:25; Status DC Labetalol HCl (Normodyne) 20 mg 1X ONCE IVP Last administered on 06/30/16 12: 52; Start 06/30/16 at 12:30; Stop 06/30/16 at 12:31; Status DC Nicardipine HCl 50 mg/Sodium Chloride 270 ml @ 0 mls/hr CONT PRN IV SEE I/O RECORD Last administered on 06/30/16 13:45; Start 06/30/16 at 13:45; Stop 07/02 at 12:18; Status DC Amlodipine Besylate (Norvasc) 10 mg DAILY PO Last administered on 07/03/16 09: 08; Start 06/30/16 at 15:00 Hydrochlorothiazide (Hydrodiuril) 25 mg DAILY PO Last administered on 09:08; Start 06/30/16 at 15:00 Spironolactone (Aldactone) 25 mg DAILY PO Last administered on 07/03/16 09:08 ; Start 06/30/16 at 15:00 Potassium Chloride (Klor-Con) 10 meq DAILYWBKFT PO Last administered on 09:08; Start 07/01/16 at 08:00 Atorvastatin Calcium (Lipitor) 80 mg QHS PO Last administered on 07/02/16 20: 51; Start 06/30/16 at 21:00 Potassium Chloride (Klor-Con) 40 meq 1X ONCE PO Last administered on 15:43; Start 06/30/16 at 15:15; Stop 06/30/16 at 15:16; Status DC Potassium Chloride (Klor-Con) 40 meq 1X ONCE PO Last administered on 08:30; Start 07/01/16 at 08:30; Stop 07/01/16 at 08:31; Status DC Potassium Chloride (Klor-Con) 40 meq 1X ONCE PO Last administered on 11:16; Start 07/01/16 at 10:30; Stop 07/01/16 at 10:31; Status DC Hydralazine HCl (Apresoline) 10 mg PRN Q4HRS PRN IVP ELEVATED BP, SEE COMMENTS Last administered on 07/02/16 20:21; Start 07/02/16 at 19:45; Stop 07/02/16 at 20:48; Status DC Hydralazine HCl (Apresoline) 20 mg PRN Q6HRS PRN IVP ELEVATED BP, SEE COMMENTS Last administered on 07/03/16 04:13; Start 07/03/16 at 04:00 Iohexol (Omnipaque 300 Mg/ml) 75 ml 1X ONCE IV Last administered on 07/03/16 09:33; Start 07/03/16 at 07:00; Stop 07/03/16 at 07:01; Status DC Info (Do NOT chart on this entry -- for MONITORING) 1 each PRN DAILY PRN MC SEE COMMENTS; Start 07/03/16 at 06:45; Stop 07/05/16 at 06:44 Iohexol (Omnipaque 300 Mg/ml) 75 ml 1X ONCE IV ; Start 07/03/16 at 09:00; Stop 07/03/16 at 09:01; Status DC Info (Do NOT chart on this entry -- for MONITORING) 1 each PRN DAILY PRN MC SEE COMMENTS; Start 07/03/16 at 09:00; Stop 07/05/16 at 08:59 Active Scripts Active Reported Aldactone (Spironolactone) 25 Mg Tablet 1 Tab PO DAILY Potassium Chloride 10 Meq Capsule.er 1 Cap PO DAILY Crestor (Rosuvastatin Calcium) 40 Mg Tablet 1 Tab PO DAILY Amlodipine Besylate 10 Mg Tablet 1 Tab PO DAILY Hydrochlorothiazide Tablet (Hydrochlorothiazide) 25 Mg Tablet 25 Mg PO DAILY Allergies Allergies: Coded Allergies: No Known Drug Allergies (Unverified , 10/16/13) ROS General: YES: Appetite PSYCHOLOGICAL ROS: YES: Anxiety Eyes: Yes Decreased vision HEENT: YES: Heacaches Respiratory: YES: Cough Cardiovascular: yes Lt Headedness Gastrointestinal: Yes Constipation Genitourinary: YES Other (NOCTURIA) Musculoskeletal: Yes Muscular Weakness Neurological: Yes Weakness Skin: Yes Dry Skin Physical Exam General: Alert, Oriented X3, Cooperative, No acute distress HEENT: Atraumatic, PERRLA Lungs: Clear to auscultation Heart: Regular rate, Normal S2 Abdomen: Normal bowel sounds, Soft, No tenderness Extremities: No clubbing Neuro: Normal speech, Cranial nerves 3-12 NL Psych/Mental Status: Mental status NL, Mood NL MUSCULOSKELETAL: No deformity, No swelling Vitals VITALS Vital Signs Date Time Temp Pulse Resp B/P (MAP) Pulse Ox O2 Delivery O2 Flow Rate FiO2 07/03/16 10:30 98.2 98 18 192/121 (144) 98 Room Air 98.2 Labs Labs Laboratory Tests Test 07/02/16 03:09 Sodium Level 142 mmol/L (136-145) Potassium Level 3.7 mmol/L (3.5-5.1) Chloride Level 102 mmol/L (98-107) Carbon Dioxide Level 33 mmol/L (21-32) Anion Gap 7 (6-14) Blood Urea Nitrogen 16 mg/dL (8-26) Creatinine 1.3 mg/dL (0.7-1.3) Estimated GFR (Cockcroft-Gault) 72.6 Glucose Level 98 mg/dL (70-99) Calcium Level 9.4 mg/dL (8.5-10.1) Prostate Specific Antigen 0.74 ng/mL (0.00-4.00) Assessment/Plan Assessment/Plan IMP MALIGNANT HTN RIGHT RENAL CYST-BENIGN APPEARING NON COMPLIANCE-TOLD ME THAT HE HAS NOT BEEN TAKING HIS MEDS AT HOME HYPOKALEMIA-CORRECTED PLAN ENCOURAGE COMPLIANCE WITH MEDS ADD BETA MIKEY STABLE FOR D/C BLAZE GUO MD July 03, 2016 11:56
[2016-07-03] MEDS: METOPROLOL TART IMMED RELEASE 50 MG TABLET. PO SCH ×2 (13:16→17:30)
[2016-07-03 14:35] VITALS: BP 148/111
--- NOTE | 2016-07-03 16:14 | PDOC ---
PROGRESS NOTES Subjective Subjective Pt. with right renal cyst Objective Objective Vital Signs Date Time Temp Pulse Resp B/P (MAP) Pulse Ox O2 Delivery O2 Flow Rate FiO2 07/03/16 14:35 99.0 85 18 148/111 (123) 98 Room Air 99.0 Intake and Output 07/03/16 07:00 Intake Total 1490 ml Balance 1490 ml Intake Oral 1490 ml # Voids 9 Physical Exam Physical Exam right renal cyst on CT Plan Plan of Care follow up urology 6 months Comment Review of Relevant I have reviewed the following items mireille (where applicable) has been applied. Labs Laboratory Tests Test 07/02/16 03:09 Sodium Level 142 mmol/L (136-145) Potassium Level 3.7 mmol/L (3.5-5.1) Chloride Level 102 mmol/L (98-107) Carbon Dioxide Level 33 mmol/L (21-32) Anion Gap 7 (6-14) Blood Urea Nitrogen 16 mg/dL (8-26) Creatinine 1.3 mg/dL (0.7-1.3) Estimated GFR (Cockcroft-Gault) 72.6 Glucose Level 98 mg/dL (70-99) Calcium Level 9.4 mg/dL (8.5-10.1) Prostate Specific Antigen 0.74 ng/mL (0.00-4.00) Medications Current Medications Sodium Chloride 1,000 ml @ 100 mls/hr Q10H IV Last administered on 06/30/16 12:52; Start 06/30/16 at 12:26; Stop 06/30/16 at 22:25; Status DC Labetalol HCl (Normodyne) 20 mg 1X ONCE IVP Last administered on 06/30/16 12: 52; Start 06/30/16 at 12:30; Stop 06/30/16 at 12:31; Status DC Nicardipine HCl 50 mg/Sodium Chloride 270 ml @ 0 mls/hr CONT PRN IV SEE I/O RECORD Last administered on 06/30/16 13:45; Start 06/30/16 at 13:45; Stop 07/02 at 12:18; Status DC Amlodipine Besylate (Norvasc) 10 mg DAILY PO Last administered on 07/03/16 09: 08; Start 06/30/16 at 15:00 Hydrochlorothiazide (Hydrodiuril) 25 mg DAILY PO Last administered on 09:08; Start 06/30/16 at 15:00 Spironolactone (Aldactone) 25 mg DAILY PO Last administered on 07/03/16 09:08 ; Start 06/30/16 at 15:00 Potassium Chloride (Klor-Con) 10 meq DAILYWBKFT PO Last administered on 09:08; Start 07/01/16 at 08:00 Atorvastatin Calcium (Lipitor) 80 mg QHS PO Last administered on 07/02/16 20: 51; Start 06/30/16 at 21:00 Potassium Chloride (Klor-Con) 40 meq 1X ONCE PO Last administered on 15:43; Start 06/30/16 at 15:15; Stop 06/30/16 at 15:16; Status DC Potassium Chloride (Klor-Con) 40 meq 1X ONCE PO Last administered on 08:30; Start 07/01/16 at 08:30; Stop 07/01/16 at 08:31; Status DC Potassium Chloride (Klor-Con) 40 meq 1X ONCE PO Last administered on 11:16; Start 07/01/16 at 10:30; Stop 07/01/16 at 10:31; Status DC Hydralazine HCl (Apresoline) 10 mg PRN Q4HRS PRN IVP ELEVATED BP, SEE COMMENTS Last administered on 07/02/16 20:21; Start 07/02/16 at 19:45; Stop 07/02/16 at 20:48; Status DC Hydralazine HCl (Apresoline) 20 mg PRN Q6HRS PRN IVP ELEVATED BP, SEE COMMENTS Last administered on 07/03/16 04:13; Start 07/03/16 at 04:00 Iohexol (Omnipaque 300 Mg/ml) 75 ml 1X ONCE IV Last administered on 07/03/16 09:33; Start 07/03/16 at 07:00; Stop 07/03/16 at 07:01; Status DC Info (Do NOT chart on this entry -- for MONITORING) 1 each PRN DAILY PRN MC SEE COMMENTS; Start 07/03/16 at 06:45; Stop 07/05/16 at 06:44 Iohexol (Omnipaque 300 Mg/ml) 75 ml 1X ONCE IV ; Start 07/03/16 at 09:00; Stop 07/03/16 at 09:01; Status DC Info (Do NOT chart on this entry -- for MONITORING) 1 each PRN DAILY PRN MC SEE COMMENTS; Start 07/03/16 at 09:00; Stop 07/05/16 at 08:59 Metoprolol Tartrate (Lopressor) 50 mg BID PO Last administered on 07/03/16t 13: 16; Start 07/03/16 at 12:30 Active Scripts Active Reported Aldactone (Spironolactone) 25 Mg Tablet 1 Tab PO DAILY Potassium Chloride 10 Meq Capsule.er 1 Cap PO DAILY Crestor (Rosuvastatin Calcium) 40 Mg Tablet 1 Tab PO DAILY Amlodipine Besylate 10 Mg Tablet 1 Tab PO DAILY Hydrochlorothiazide Tablet (Hydrochlorothiazide) 25 Mg Tablet 25 Mg PO DAILY Vitals/I & O Vital Sign - Last 24 Hours 07/02/16 07/02/16 07/02/16 07/02/16 19:00 20:00 20:14 20:21 Temp 98.4 98.4 Pulse 81 80 80 Resp 18 B/P (MAP) 150/109 (123) 169/114 169/114 Pulse Ox 97 O2 Delivery Room Air Room Air 07/02/16 07/03/16 07/03/16 07/03/16 23:00 03:00 04:13 07:22 Temp 98.4 98.9 97.9 98.4 98.9 97.9 Pulse 89 98 96 98 Resp 18 19 18 B/P (MAP) 150/102 (118) 150/118 (129) 150/118 143/92 (109) Pulse Ox 97 98 98 O2 Delivery Room Air Room Air Room Air 07/03/16 07/03/16 07/03/16 07/03/16 09:08 10:30 13:16 14:35 Temp 98.2 99.0 98.2 99.0 Pulse 98 98 98 85 Resp 18 18 B/P (MAP) 143/92 192/121 (144) 192/121 148/111 (123) Pulse Ox 98 98 O2 Delivery Room Air Room Air Intake and Output 07/02/16 07/02/16 07/03/16 15:00 23:00 07:00 Intake Total 450 ml 800 ml 240 ml Balance 450 ml 800 ml 240 ml BRIANNA DICKENS MD July 03, 2016 16:14
--- NOTE | 2016-07-03 17:05 | PDOC ---
PROGRESS NOTES Subjective Subjective BP improving Objective Objective Vital Signs Date Time Temp Pulse Resp B/P (MAP) Pulse Ox O2 Delivery O2 Flow Rate FiO2 07/03/16 14:35 99.0 85 18 148/111 (123) 98 Room Air 99.0 Intake and Output 07/03/16 07:00 Intake Total 1490 ml Balance 1490 ml Intake Oral 1490 ml # Voids 9 Physical Exam Abdomen: Normal bowel sounds, Soft, No tenderness Heart: Regular rate, Normal S2 Extremities: No clubbing General: Alert, Oriented X3, Cooperative, No acute distress HEENT: Atraumatic, PERRLA Lungs: Clear to auscultation MUSCULOSKELETAL: No deformity, No swelling Neck: Supple Neuro: Normal speech, Cranial nerves 3-12 NL Psych/Mental Status: Mental status NL, Mood NL Skin: No breakdown Assessment Assessment FINAL IMPRESSION: 1. Malignant hypertension. 2. Noncompliance. 3. History of smoking and alcoholism. PLAN: no renal artery stenosis ECHO good LVF. potassium good 4.0 today ,replaced. renal consult sono kidneys and ct scan showed 4 cm kidney cyst home today . At this time, admit to hospital ICU. The patient was placed on Nipride drip, was titrated down, weaned off this morning. We will get an echocardiogram for left ventricular function, replace potassium and can move out of the ICU today. Probably discharge home in the next 1-2 days. Problems: Comment Review of Relevant I have reviewed the following items mireille (where applicable) has been applied. Medications Current Medications Hydralazine HCl (Apresoline) 10 mg PRN Q4HRS PRN IVP ELEVATED BP, SEE COMMENTS Last administered on 07/02/16 20:21; Start 07/02/16 at 19:45; Stop 07/02/16 at 20:48; Status DC Hydralazine HCl (Apresoline) 20 mg PRN Q6HRS PRN IVP ELEVATED BP, SEE COMMENTS Last administered on 07/03/16 04:13; Start 07/03/16 at 04:00 Info (Do NOT chart on this entry -- for MONITORING) 1 each PRN DAILY PRN MC SEE COMMENTS; Start 07/03/16 at 06:45; Stop 07/05/16 at 06:44 Info (Do NOT chart on this entry -- for MONITORING) 1 each PRN DAILY PRN MC SEE COMMENTS; Start 07/03/16 at 09:00; Stop 07/05/16 at 08:59 Iohexol (Omnipaque 300 Mg/ml) 75 ml 1X ONCE IV Last administered on 07/03/16 09:33; Start 07/03/16 at 07:00; Stop 07/03/16 at 07:01; Status DC Iohexol (Omnipaque 300 Mg/ml) 75 ml 1X ONCE IV ; Start 07/03/16 at 09:00; Stop 07/03/16 at 09:01; Status DC Metoprolol Tartrate (Lopressor) 50 mg BID PO Last administered on 07/03/16 13: 16; Start 07/03/16 at 12:30 Vitals/I & O Vital Sign - Last 24 Hours 07/02/16 07/02/16 07/02/16 07/02/16 19:00 20:00 20:14 20:21 Temp 98.4 98.4 Pulse 81 80 80 Resp 18 B/P (MAP) 150/109 (123) 169/114 169/114 Pulse Ox 97 O2 Delivery Room Air Room Air 07/02/16 07/03/16 07/03/16 07/03/16 23:00 03:00 04:13 07:22 Temp 98.4 98.9 97.9 98.4 98.9 97.9 Pulse 89 98 96 98 Resp 18 19 18 B/P (MAP) 150/102 (118) 150/118 (129) 150/118 143/92 (109) Pulse Ox 97 98 98 O2 Delivery Room Air Room Air Room Air 07/03/16 07/03/16 07/03/16 07/03/16 09:08 10:30 13:16 14:35 Temp 98.2 99.0 98.2 99.0 Pulse 98 98 98 85 Resp 18 18 B/P (MAP) 143/92 192/121 (144) 192/121 148/111 (123) Pulse Ox 98 98 O2 Delivery Room Air Room Air Intake and Output 07/02/16 07/02/16 07/03/16 15:00 23:00 07:00 Intake Total 450 ml 800 ml 240 ml Balance 450 ml 800 ml 240 ml NOY GOLDEN MD July 03, 2016 17:05
[2016-07-03] MEDS ORDERED: METO25TA9 PO (17:16)
[2016-07-03] MEDS ORDERED: METO50TA2 PO (17:25)
[2016-07-03] MEDS: ATORVASTATIN CALCIUM 40 MG TABLET. PO SCH (17:29)
[2016-07-03 17:30] VITALS: BP 148/111
--- NOTE | 2016-07-04 03:27 | CONS ---
DATE OF CONSULTATION: 07/03/2016 LOCATION: The patient is in room 502. HISTORY OF PRESENT ILLNESS: The patient is a very pleasant 45-year-old -[place] male who was admitted with malignant hypertension. The patient during his hospitalization had a renal ultrasound which showed him to have a 3.5-mm complex right renal cyst. The patient with no prior imaging of his kidneys. The patient is asymptomatic. PAST MEDICAL HISTORY: Significant for hypertension, hyperlipidemia, gout, and noncompliance. PAST SURGICAL HISTORY: The patient has had no prior operations. ALLERGIES: THE PATIENT WITH NO KNOWN DRUG ALLERGIES. The patient's creatinine is 1.3. White count is 5.7. Urine showed just an occasional red cell, 1-4 white cells, 0 bacteria. The patient with history of prostate cancer in his father. The patient is not sure what his prior PSAs were. REVIEW OF SYSTEMS: The patient with no difficulty voiding, no complaints of any pain. PHYSICAL EXAMINATION: ABDOMEN: Soft, nontender, no CVA tenderness. GENITOURINARY: Testes are descended bilaterally. Phallus within normal limits. RECTAL: Good sphincter tone. Prostate smooth, nontender, without nodules, overall size 25 grams. ASSESSMENT: A complex right renal cyst measuring 2.57 cm. PLAN: Will be CT of abdomen with renal mass protocol to further delineate the complex right renal cyst and then proceed accordingly. Also get a PSA on the patient. I certainly appreciate being allowed to participate in this patient's care. BRIANNA DICKENS MD DR: BLANCHE/bony JOB#: [id number] / [id number]
== END 2016-07-03 17:45 | disposition home or self-care (01) | DRG 305 ==
LOC: ER 11:28 → 1 WEST ICU 14:03 → 5 NORTH 07-01 12:27
PROVIDERS: ADMIT Internal Medicine; ATTEND Internal Medicine
DX: I10 Essential (primary) hypertension (principal); E78.5 Hyperlipidemia, unspecified; M10.9 Gout, unspecified; N28.1 Cyst of kidney, acquired; E78.00 Pure hypercholesterolemia, unspecified; Y90.9 Presence of alcohol in blood, level not specified; K59.00 Constipation, unspecified; E87.6 Hypokalemia; F10.20 Alcohol dependence, uncomplicated; F17.210 Nicotine dependence, cigarettes, uncomplicated; Z80.42 Family history of malignant neoplasm of prostate; Z82.49 Family history of ischemic heart disease and other diseases of the circulatory system; Z91.19 Patient's noncompliance with other medical treatment and regimen; Z79.899 Other long term (current) drug therapy
CPT/HCPCS: 36415; 70450; 71010; 74170; 76770; 80048; 80053; 81001; 83690; 83735; 84484; 85027; 85610; 85730; 87641; 93005; 93306; 93975; 96361; 96365; 96375; G0103; J0360; J3490; J7030; J7050; Q9967; 99291-25

== ENCOUNTER 2017-06-23 16:39 | Emergency (ER) | payer OTHER | END 2017-06-23 19:06 | disposition home or self-care (01) | LOC: ER 16:39 | DX: S23.3XXA Sprain of ligaments of thoracic spine, initial encounter (principal); S13.4XXA Sprain of ligaments of cervical spine, initial encounter; M54.5 Low back pain; I10 Essential (primary) hypertension; E78.00 Pure hypercholesterolemia, unspecified; V43.52XA Car driver injured in collision with other type car in traffic accident, initial encounter; Y92.410 Unspecified street and highway as the place of occurrence of the external cause; Y93.I9 Activity, other involving external motion; Y99.8 Other external cause status | CPT/HCPCS: 70450; 72072; 72100; 72125; 99284-25 ==

== ENCOUNTER 2018-07-27 11:54 | Emergency (ER) | payer OTHER ==
[~2018-07-27] VITALS: Ht 177.8 cm; Wt 98.9 kg
[~2018-07-27 11:54] MED LIST changes: -AMLO10TA2 PO; +AMLO10TA8 PO; +CYCL10TA2 PO; +HYDR-2145 PO; -HYDR25TA9 PO; +METO-239 PO; +METO50TA6 PO; +NAPR500T8 PO; +POTA10TA12 PO; -POTASSIUM CHLO10 MEQ PO
[2018-07-27] MEDS ORDERED: KETOROLAC 30 MG/ML VIAL. IM ONE (15:30)
[2018-07-27] MEDS ORDERED: CYCLOBENZAPRINE 10 MG TABLET. PO ONE (15:30)
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
[2018-07-27 16:45] VITALS: BP 174/119
[2018-07-27] MEDS ORDERED: CYCL10TA2 PO (17:02)
[2018-07-27] MEDS ORDERED: ONDA4TAB12 PO (17:02)
[2018-07-27] MEDS ORDERED: IBUP-1060 PO (17:03)
== END 2018-07-27 17:25 | disposition home or self-care (01) ==
LOC: ER 11:54
DX: S06.0X1A Concussion with loss of consciousness of 30 minutes or less, initial encounter (principal); M54.5 Low back pain; M54.6 Pain in thoracic spine; M47.892 Other spondylosis, cervical region; R42 Dizziness and giddiness; E78.00 Pure hypercholesterolemia, unspecified; I10 Essential (primary) hypertension; F17.210 Nicotine dependence, cigarettes, uncomplicated; V43.52XA Car driver injured in collision with other type car in traffic accident, initial encounter; Y93.89 Activity, other specified; Y92.89 Other specified places as the place of occurrence of the external cause; Y99.8 Other external cause status
CPT/HCPCS: 70450; 72125; 72128; 72131; 96372; 99284; J1885